=== PATIENT | male | born 1970 | race American Indian/Alaskan Native ===

== ENCOUNTER 2019-03-11 11:50 | Outpatient (CLI) | payer OTHER ==
--- NOTE | 2019-03-11 14:43 | Vascular Lab Report ---
DUPLEX DOPPLER LOWER EXTREMITY VEINS, RIGHT INDICATION: M79.89) Other specified soft tissue disorders./SWELLING RT. LEG. Right ankle swelling fo r 3 days. TECHNIQUE: Duplex doppler imaging was performed through the veins of the right lower extremity using venous compression and other maneuvers. COMPARISON: No relevant prior imaging study available. FINDINGS: Right Common femoral vein: Negative. Right Superficial femoral vein: Negative. Right Popliteal vein: Negative. Right Calf veins: Negative. Additional findings: None.. IMPRESSION: No sonographic evidence for DVT in the right lower extremity. Signer Name: Prasad Turk Jr, MD Signed: 03/11/2019 2:38 PM Workstation Name: [id number]
== END 2019-03-11 11:51 | disposition home or self-care (01) ==
LOC: VAS 11:50
PROVIDERS: ATTEND Family Medicine
DX: M79.89 Other specified soft tissue disorders (principal)